=== PATIENT | female | born 1950 | race Caucasian/White ===

== ENCOUNTER 2017-10-09 08:56 | Day surgery (SDC) | payer MEDICARE, OTHER ==
[2017-10-09] MEDS ORDERED: LIDOCAINE 2% (SDV) 5 ML INJ (10:43)
[2017-10-09] MEDS ORDERED: PROPOFOL 40 ML (10:43)
== END 2017-10-09 14:44 | disposition home or self-care (01) ==
LOC: GIL 08:56
DX: Z12.11 Encounter for screening for malignant neoplasm of colon (principal); K44.9 Diaphragmatic hernia without obstruction or gangrene; K21.9 Gastro-esophageal reflux disease without esophagitis; K64.8 Other hemorrhoids; I10 Essential (primary) hypertension; E78.5 Hyperlipidemia, unspecified; E66.9 Obesity, unspecified; Z68.34 Body mass index [BMI] 34.0-34.9, adult; K57.90 Diverticulosis of intestine, part unspecified, without perforation or abscess without bleeding; K29.70 Gastritis, unspecified, without bleeding
CPT/HCPCS: 43239; 87081